=== PATIENT | male | born 1970 | race Two or more races ===

== ENCOUNTER 2018-08-06 17:26 | Emergency (ER) | payer MEDICAID ==
[~2018-08-06] VITALS: Ht 182.9 cm; Wt 81.6 kg
--- NOTE | 2018-08-06 17:38 | Emergency Room Report ---
History of Present Illness General Chief Complaint: Alcohol Intoxication Source: Patient (Anatoly Serrano MD) Present Illness HPI He presents after someone called EMS to his motel room. He was unconscious at that time and unresponsive. He did wake up. The patient states that his self- worth is 0 at this time he will not answer questions about whether is trying to harm himself. He denies doing anything other than alcohol. He denies pain in his body at this time. He denies seizures. He denies throwing up blood or melena. (Anatoly Serrano MD) Allergies: Coded Allergies: No Known Allergies (Unverified , 08/06/18) Patient History Limited by: medical condition Past Medical History: see triage record Social History: Reports: smoking, alcohol use Social History Narrative From a motel room Reviewed Nursing Documentation: PMH: Agreed; PSxH: Agreed (Anatoly Serrano MD) Nursing Documentation-PMH Past Medical History: No Stated History (Anatoly Serrano MD) Review of Systems All Other Systems: limited (Anatoly Serrano MD) Physical Exam Vital Signs Date Time Temp Pulse Resp B/P (MAP) Pulse Ox O2 Delivery O2 Flow Rate FiO2 08/06/18 17:19 97.9 76 16 124/87 98 Room Air Sp02 EP Interpretation: reviewed, normal General Appearance: well appearing, no apparent distress, lethargic - Slurring words but easily awakened and follows commands Head: normocephalic Eyes: bilateral eye PERRL, bilateral eye Scleral Injection ENT: moist mucus membranes Neck: supple Respiratory: lungs clear, normal breath sounds Cardiovascular #1: regular rate, rhythm Cardiovascular #2: 2+ radial (R) Gastrointestinal: normal inspection, normal bowel sounds, non tender, no mass, non-distended Musculoskeletal: back normal, gait/station normal, normal range of motion Neurologic: alert, motor strength/tone normal, DTRs symmetric, sensory intact, other - Mildly ataxic with slurred speech, oriented - X2 Psychiatric: depressed affect, other - Intoxicated Skin: normal inspection, warm/dry (Anatoly Serrano MD) Medical Decision Making Diagnostic Impression: Primary Impression: Acute alcoholic intoxication Qualified Codes: F10.920 - Alcohol use, unspecified with intoxication, uncomplicated ER Course Patient presents via EMS after being found unresponsive and admitting to alcohol. Differential includes suicide gesture him a acute intoxication, electrolyte abnormality, other toxic ingestions amongst others. The patient will be evaluated with EKG, labs. The patient will be treated with IV hydration and IV thiamine. He will need to have psychiatric evaluation when he is more sober. There is no evidence of head trauma. The patient has no respiratory difficulty. EKG without injury. Labs with positive blood alcohol level. Patient is sleeping. He needs continued observation and repeat evaluation in the morning. Patient signed out to Dr. Capone. Laboratory Tests Test 08/06/18 17:40 08/06/18 20:01 White Blood Count 14.7 K/UL (4.8-10.8) H Red Blood Count 4.42 M/UL (4.70-6.10) L Hemoglobin 13.6 G/DL (14.2-18.0) L Hematocrit 40.6 % (42.0-52.0) L Mean Corpuscular Volume 92 FL (80-99) Mean Corpuscular Hemoglobin 30.8 PG (27.0-31.0) Mean Corpuscular Hemoglobin Concent 33.5 G/DL (32.0-36.0) Red Cell Distribution Width 14.1 % (11.6-14.8) Platelet Count 365 K/UL (150-450) Mean Platelet Volume 6.3 FL (6.5-10.1) L Neutrophils (%) (Auto) 76.1 % (45.0-75.0) H Lymphocytes (%) (Auto) 16.8 % (20.0-45.0) L Monocytes (%) (Auto) 5.1 % (1.0-10.0) Eosinophils (%) (Auto) 1.2 % (0.0-3.0) Basophils (%) (Auto) 0.8 % (0.0-2.0) Sodium Level 146 MMOL/L (136-145) H Potassium Level 4.4 MMOL/L (3.5-5.1) Chloride Level 110 MMOL/L (98-107) H Carbon Dioxide Level 23 MMOL/L (21-32) Anion Gap 14 mmol/L (5-15) Blood Urea Nitrogen 21 mg/dL (7-18) H Creatinine 1.1 MG/DL (0.55-1.30) Estimate Glomerular Filtration Rate > 60 mL/min (>60) Glucose Level 76 MG/DL (74-106) Calcium Level 9.2 MG/DL (8.5-10.1) Total Bilirubin 0.1 MG/DL (0.2-1.0) L Aspartate Amino Transferase (AST) 77 U/L (15-37) H Alanine Aminotransferase (ALT) 44 U/L (12-78) Alkaline Phosphatase 41 U/L (46-116) L Total Creatine Kinase 2381 U/L (26-308) H Total Protein 7.7 G/DL (6.4-8.2) Albumin 3.8 G/DL (3.4-5.0) Globulin 3.9 g/dL Albumin/Globulin Ratio 1.0 (1.0-2.7) Salicylates Level 2.2 ug/mL (2.8-20) L Acetaminophen Level < 2 MCG/ML (10-30) L Serum Alcohol 294 mg/dL Urine Opiates Screen Negative (NEGATIVE) Urine Barbiturates Screen Negative (NEGATIVE) Phencyclidine (PCP) Screen Negative (NEGATIVE) Urine Amphetamines Screen Negative (NEGATIVE) Urine Benzodiazepines Screen Negative (NEGATIVE) Urine Cocaine Screen Negative (NEGATIVE) Urine Marijuana (THC) Screen Negative (NEGATIVE) (Anatoly Serrano MD) ER Course Patient signout to me. He presents with alcohol intoxication. He slept in the night. He talking without any difficulty now. Walked to the bathroom without a problem. He said that he moved from [place] to here. He has been staying in [facility] room. He is not suicidal or homicidal. I see no criteria for 5150. I with the patient sleep here and discharge in the morning. He does not want to go to a intermediate. (Nawaf Capone MD) EKG Diagnostic Results Rate: normal Rhythm: NSR ST Segments: no acute changes (Anatoly Serrano MD) Rhythm Strip Diag. Results EP Interpretation: yes Rhythm: NSR, no PVC's, no ectopy (Anatoly Serrano MD) Last Vital Signs Date Time Temp Pulse Resp B/P (MAP) Pulse Ox O2 Delivery O2 Flow Rate FiO2 08/07/18 09:37 98.0 77 18 124/90 98 Room Air 98 Status: improved (Anatoly Serrano MD) Status: improved (Nawaf Capone MD) Disposition: HOME, SELF-CARE Condition: Stable Patient Instructions: Alcohol Intoxication, [id number] Additional Instructions: Follow-up with your doctor in 7 days. Return if worse. Anatoly Serrano MD Aug 06, 2018 17:38 Nawaf Capone MD August 07, 2018 01:05
[2018-08-06] MEDS ORDERED: Thiamine HCl 100 MG in D5W 55 ML IVPB SCH (17:45)
[2018-08-06 17:51] VITALS: BP 122/85
--- NOTE | 2018-08-06 17:51 | NUR ---
ED Nurse Note: Pt was BIBA from [facility] because he was laying on the floor and refused to stand up. Pt noted to be drunk and slurring his words. No complaints of pain. Pt skin warm to touch.
[2018-08-06 18:03] LABS: BASOPHILS % (AUTO) 0.8 % (0.0-2.0); EOSINOPHILS % (AUTO) 1.2 % (0.0-3.0); HEMATOCRIT 40.6 % (42.0-52.0); HEMOGLOBIN 13.6 G/DL (14.2-18.0); LYMPHOCYTES % (AUTO) 16.8 % (20.0-45.0); MEAN CORPUSCULAR VOLUME 92 FL (80-99); MONOCYTES % (AUTO) 5.1 % (1.0-10.0); NEUTROPHILS % (AUTO) 76.1 % (45.0-75.0); PLATELET COUNT 365 K/UL (150-450); RED BLOOD COUNT 4.42 M/UL (4.70-6.10); RED CELL DISTRIBUTION WIDTH 14.1 % (11.6-14.8); WHITE BLOOD COUNT 14.7 K/UL (4.8-10.8)
[2018-08-06 18:05] LABS: ANION GAP 14 mmol/L (5-15); BLOOD UREA NITROGEN 21 mg/dL (7-18); CALCIUM 9.2 MG/DL (8.5-10.1); CARBON DIOXIDE 23 MMOL/L (21-32); CHLORIDE 110 MMOL/L (98-107); CREATININE 1.1 MG/DL (0.55-1.30); POTASSIUM 4.4 MMOL/L (3.5-5.1); SODIUM 146 MMOL/L (136-145)
[2018-08-06 18:18] LABS: ALANINE AMINOTRANSFERASE 44 U/L (12-78); ALBUMIN 3.8 G/DL (3.4-5.0); ALKALINE PHOSPHATASE 41 U/L (46-116); ASPARTATE AMINO TRANSFERASE 77 U/L (15-37); BILIRUBIN,TOTAL 0.1 MG/DL (0.2-1.0); CREATINE KINASE 2381 U/L (26-308)
--- NOTE | 2018-08-06 19:02 | NUR ---
HAND-OFF: Report given to RHEA Torres.
--- NOTE | 2018-08-06 22:30 | NUR ---
ED Nurse Note: Received. Pt is awake, but does not answer questions. Unable to determine where the patient lives. Able to ambulate to BR.
[2018-08-07] VITALS: BP 127/77
--- NOTE | 2018-08-07 00:38 | NUR ---
ED Nurse Note: Received report from Kari/RN, charge. Pt is A/O X 4. Ambulated with steady gait. Will continue to monitor.
[2018-08-07 03:35] VITALS: BP 127/77
--- NOTE | 2018-08-07 04:43 | NUR ---
ED Nurse Note: Awake alert and oriented x 4; fully ambulatory without difficulty. Expresses desire for rehab for alcohol abuse, asking for SW consult.
--- NOTE | 2018-08-07 06:20 | NUR ---
ED Nurse Note: Pt presented with a list of alcohol rehab; he still wants to see SW.
[2018-08-07 06:45] VITALS: BP 123/73
--- NOTE | 2018-08-07 07:08 | NUR ---
HAND-OFF: Report given to Fidel HENRY/RHEA for continue care.
--- NOTE | 2018-08-07 07:32 | NUR ---
ED Nurse Note: Received pt sleeping in bed. breakfast ordered. will wake pt up and discharge when pt is sober.
--- NOTE | 2018-08-07 08:00 | NUR ---
ED Nurse Note: patient is having breakfast.
[2018-08-07 09:37] VITALS: BP 124/90
--- NOTE | 2018-08-07 09:39 | NUR ---
ER DISCHARGE NOTE: Patient is cleared to be discharged per ERMD and patient agreed with being discharged, pt is aox4, on room air, with stable vital signs. pt was given dc instructions, pt was able to verbalize understanding, pt id band and iv site removed without complications. pt is able to ambulate with steady gait. pt took all belongings.
--- NOTE | 2018-08-08 14:31 | Cardiology Report ---
APPROVED REPORT EKG Measurement Heart [id number] Normal sinus rhythm Normal ECG
== END 2018-08-07 09:40 | disposition home or self-care (01) ==
LOC: EDBD 17:26 → EMR 18:13 → CANBEDREQ 20:42 → EMR 08-07 09:40
DX: F10.120 Alcohol abuse with intoxication, uncomplicated (principal); F17.200 Nicotine dependence, unspecified, uncomplicated
CPT/HCPCS: 36415; 80053; 80307; 80329; 82550; 85025; 93005; 96365; 99284